=== PATIENT | female | born 1955 | race Two or more races ===

== ENCOUNTER 2019-02-12 19:51 | Emergency (ER) | payer OTHER ==
[~2019-02-12] VITALS: Ht 167.6 cm; Wt 58.2 kg
--- NOTE | 2019-02-12 20:05 | NUR ---
patient BIB ambulance. patient stated that she has been feeling nauseous and vomiting that started at 1500 today. Patient denies any respiratory distress. Patient is alert and oriented x4. Patient able to move all extremeties.
[2019-02-12] MEDS ORDERED: ASPI-605 PO (20:07)
[2019-02-12] MEDS ORDERED: AMLO5TAB4 PO (20:08)
[2019-02-12] MEDS ORDERED: ATEN50TA PO (20:08)
[2019-02-12] MEDS ORDERED: IV NORMAL SALINE 1000 ML BAG IV ONE (20:15)
[2019-02-12] MEDS ORDERED: MECLIZINE HCL 25 MG TABLET PO ONE (20:15)
[2019-02-12] MEDS ORDERED: ONDANSETRON 4 MG/2 ML VIAL IV ONE (20:15)
[2019-02-12] MEDS ORDERED: KETOROLAC TROMETHAMINE 30 MG INJ IVP ONE (20:15)
[2019-02-12] MEDS ORDERED: ONDANSETRON 4 MG/2 ML VIAL ONE (20:30)
[2019-02-12] MEDS ORDERED: KETOROLAC TROMETHAMINE 30 MG INJ ONE (20:30)
[2019-02-12] MEDS ORDERED: MECLIZINE HCL 25 MG TABLET ONE (20:31)
[2019-02-12 20:37] LABS: BASOPHILS % (AUTO) 0.4 % (0.0-2.0); EOSINOPHILS # (AUTO) 0.1 K/uL (0.0-0.7); EOSINOPHILS % (AUTO) 0.9 % (0.0-7.0); HEMATOCRIT 36.4 % (31.2-41.9); HEMOGLOBIN 12.4 g/dL (10.9-14.3); LYMPHOCYTES # (AUTO) 1.3 K/uL (20.0-40.0); LYMPHOCYTES % (AUTO) 20.2 % (20.5-51.5); MEAN CORPUSCULAR HGB CONC 34 g/dL (32.3-35.6); MEAN CORPUSCULAR VOLUME 87.7 fL (75.5-95.3); MONOCYTES # (AUTO) 0.4 K/uL (2.0-10.0); MONOCYTES % (AUTO) 6.5 % (0.0-11.0); NEUTROPHILS # (AUTO) 4.6 K/uL (1.8-8.9); PLATELET COUNT (AUTO) 178 K/uL (179-408); RED BLOOD CELL COUNT(AUTO) 4.15 MIL/uL (3.63-4.92); WHITE BLOOD COUNT (AUTO) 6.4 K/uL (3.8-11.8)
--- NOTE | 2019-02-12 20:40 | NUR ---
patient taken down for CT with radiology asstRobbie. via janis.
[2019-02-12 20:46] LABS: ALANINE AMINOTRANSFERASE 137 U/L (14-59); ALKALINE PHOSPHATASE 85 U/L (50-136); ASPARTATE AMINOTRANSFERASE 159 U/L (15-37); BILIRUBIN,DIRECT 0.2 mg/dL (0.0-0.2); BILIRUBIN,TOTAL 0.7 mg/dL (0.2-1.0); CARBON DIOXIDE 21 mmol/L (21-32); CHLORIDE 94 mmol/L (98-107); CREATININE 0.9 mg/dL (0.6-1.3); GLUCOSE 135 mg/dL (74-106); POTASSIUM 3.2 mmol/L (3.5-5.1); UREA NITROGEN, BLOOD 13 mg/dL (7-18)
[2019-02-12 20:48] LABS: ETHANOL < 3 MG/DL (0-0)
[2019-02-12 21:24] LABS: *BILIRUBIN,URIN NEGATIVE (NEGATIVE); *CLARITY,URINE CLEAR (CLEAR); *COLOR,URINE YELLOW (YELLOW); *KETONES,URINE 1+ (NEGATIVE); *UROBILINOGEN,URINE 0.2 E.U./dl (NORMAL); LEUKOCYTE ESTERASE ,URINE NEGATIVE (NEGATIVE); NITRITE, URINE NEGATIVE (NEGATIVE); PH,URINE 7.5 (5.0-8.0); UGLUCOSE NEGATIVE (NEGATIVE)
[2019-02-12 21:30] LABS: *BLOOD, URINE TRACE (NEGATIVE)
[2019-02-12 21:33] LABS: *AMPHETAMINE, URINE NEGATIVE (NEGATIVE); *BARBITURATE, URINE NEGATIVE (NEGATIVE); *CANNABINOID, URINE NEGATIVE (NEGATIVE); *COCCAINE, URINE NEGATIVE (NEGATIVE); *OPIATE, URINE NEGATIVE (NEGATIVE); *PHENCYCLIDINE SCREEN,URINE NEGATIVE (NEGATIVE)
[2019-02-12 21:36] LABS: SQUAMOUS EPITHELIAL CELL,UR FEW /HPF (NONE SEEN); WBC,URINE 0-3 /HPF (0-3)
[2019-02-12 21:37] LABS: MUCUS,URINE FEW /LPF (0-FEW)
--- NOTE | 2019-02-12 21:46 | NUR ---
patient complaining of abdominal pain and biting on teeth. Dr. pierre at bedside to evaluate patient
[2019-02-12] MEDS ORDERED: METOCLOPRAMIDE HCL 10 MG/2 ML VIAL ONE (21:47)
[2019-02-12] MEDS ORDERED: PANTOPRAZOLE SODIUM IV 40 MG in IV DEXTROSE 5% 100 ML IV ONE (22:00)
[2019-02-12] MEDS ORDERED: METOCLOPRAMIDE HCL 10 MG/2 ML VIAL IV ONE ×2 (22:00→22:15)
[2019-02-12] MEDS ORDERED: diphenhydrAMINE 50 MG/1 ML VIAL IV ONE (22:15)
[2019-02-12] MEDS ORDERED: PIPERACILLIN/TAZOBACTAM/D5W 50 ML IV ONE (22:31)
[2019-02-12] MEDS ORDERED: PANTOPRAZOLE SODIUM 40 MG VIAL IV ONE ×2 (23:15)
[2019-02-12] MEDS ORDERED: CEFTRIAXONE 2 G in IV DEXTROSE 5% 100 ML IV ONE (23:15)
[2019-02-12] MEDS ORDERED: diphenhydrAMINE 50 MG/1 ML VIAL ONE (23:22)
[2019-02-12] MEDS ORDERED: PANTOPRAZOLE SODIUM 40 MG VIAL ONE (23:22)
[2019-02-12] MEDS ORDERED: CEFTRIAXONE /D5W 50ML IVPB **ER PYXIS IV ONE (23:23)
--- NOTE | 2019-02-12 23:25 | NUR ---
Dr. Mccollum speaking with Dr. Mckeon of [facility].
[2019-02-13] MEDS ORDERED: LORAZEPAM 2 MG/1 ML VIAL IV ONE
[2019-02-13] MEDS ORDERED: LORAZEPAM 2 MG/1 ML VIAL ONE (00:10)
--- NOTE | 2019-02-13 00:30 | NUR ---
Lamar Engineer called back. Gave Transfer info. Patient will be going to [facility] room 2318. Call for report is . Accepting MD is Dr Lowe.
[2019-02-13] MEDS ORDERED: POTASSIUM CHLORIDE 20 MEQ TAB.PRT.SR ONE (00:42)
[2019-02-13] MEDS ORDERED: POTASSIUM CHLORIDE 20 MEQ TAB.PRT.SR PO ONE (00:45)
--- NOTE | 2019-02-13 00:45 | NUR ---
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
--- NOTE | 2019-02-13 00:54 | NUR ---
report given to Cierra NEWBERRY, at receiving facility.
--- NOTE | 2019-02-13 03:11 | NUR ---
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 Addendum: 02/13/19 at 0317 by MILO waiting for call back,.
--- NOTE | 2019-02-13 03:25 | NUR ---
ambulance here to pick up man patient
--- NOTE | 2019-02-13 03:39 | NUR ---
Patient Tranfers to outside Facility: [facility] Physician:Dr. Wild Location:[facility], [place]. patient picked up by ambulance. Report was given to EMTMaikel. patient in stable condition for transfer and VSS. Daughter in law at bedside and will be going to receiving facility with , who is the patient's son. All personal belongings taken with the patient and the daughter in law. [facility]
== END 2019-02-13 03:45 | disposition short-term general hospital (02) ==
LOC: ER 19:54
DX: R42 Dizziness and giddiness (principal); R51 Headache; R11.10 Vomiting, unspecified; E87.1 Hypo-osmolality and hyponatremia; E87.6 Hypokalemia; R74.0 Nonspecific elevation of levels of transaminase and lactic acid dehydrogenase [LDH]; Z79.82 Long term (current) use of aspirin; Z79.899 Other long term (current) drug therapy
CPT/HCPCS: 36415 ×2; 70450; 80048; 80076; 80307; 81000; 81001; 82140; 83605 ×2; 84484; 85025; 85610; 85730; 87040; 93005; 96361; 96365; 96375 ×2; 99285; C9113; G0480; J0696; J1200; J1885; J2060; J2405; J2543; J2765; 70030-TC; A4663; J7030; J8597